=== PATIENT | male | born 1975 | race Caucasian/White ===

== ENCOUNTER 2022-09-12 21:11 | Emergency (ER) | payer OTHER ==
[2022-09-12] MEDS ORDERED: Lidocaine 1% 5 ML VIAL INJECT ONE (21:14)
[2022-09-12] MEDS ORDERED: Bacitracin Oint 1 GM U/D Packet TOP ONE (21:18)
[2022-09-12] MEDS ORDERED: Diphtheria,Pertussis(Acell),Tetanus Vaccine 0.5 ML Syringe IM ONE (21:46)
== END 2022-09-12 22:07 | disposition home or self-care (01) ==
LOC: JP.ED 21:11
DX: S01.04XA Puncture wound with foreign body of scalp, initial encounter (principal); Z23 Encounter for immunization; W45.8XXA Other foreign body or object entering through skin, initial encounter
CPT/HCPCS: 90471; 90715; 99283-25